=== PATIENT | female | born 1995 | race Caucasian/White ===

== ENCOUNTER 2016-09-30 05:53 | Emergency (ER) | payer OTHER ==
[2016-09-30 07:28] LABS: HEMOGLOBIN 14.4 gm/dl (12.3-15.3); RED BLOOD COUNT 5.57 M/UL (4.00-5.10); WHITE BLOOD COUNT 8.1 K/UL (4.5-11.0)
[2016-09-30 07:42] LABS: BUN/CREATININE RATIO 25 (0-10)
== END 2016-09-30 09:35 | disposition home or self-care (01) ==
LOC: ER1 05:53
PROVIDERS: Specialist/Technologist Athletic Trainer
DX: R11.2 Nausea with vomiting, unspecified (principal); R19.7 Diarrhea, unspecified; R10.816 Epigastric abdominal tenderness; M79.1 Myalgia; R68.83 Chills (without fever)
CPT/HCPCS: 36415; 80053; 81001; 82150; 83690; 84703; 85025; 96374; 96375; 99284; J2405; J2550; J7030; J7050

== ENCOUNTER 2022-03-09 12:00 | Emergency (ER) | payer OTHER ==
[~2022-03-09 12:00] MED LIST: FERROUS SULFAT325 MG PO
[2022-03-09 12:45] LABS: HEMOGLOBIN 13.2 gm/dl (12.3-15.3); RED BLOOD COUNT 4.88 M/UL (4.00-5.10)
[2022-03-09 13:15] LABS: BUN/CREATININE RATIO 12 (0-10)
[2022-03-09 13:19] LABS: WHITE BLOOD COUNT 1.2 K/UL (4.5-11.0)
[2022-03-09] MEDS ORDERED: LEVOFLOXACIN500 MG PO (13:33)
== END 2022-03-09 14:15 | disposition home or self-care (01) ==
LOC: ER1 12:00
PROVIDERS: Physician Assistant
DX: U07.1 COVID-19 (principal); D70.3 Neutropenia due to infection
CPT/HCPCS: 71045; 80053; 82550; 82553; 84484; 85025; 85379; 93005; 96374; 99285; J1885

== ENCOUNTER → 2022-03-12 | Outpatient (CLI) | payer OTHER ==
[~2022-03-12] MED LIST changes: +LEVOFLOXACIN500 MG PO
[2022-03-12 15:45] LABS: HEMOGLOBIN 13.5 gm/dl (12.3-15.3); RED BLOOD COUNT 4.93 M/UL (4.00-5.10); WHITE BLOOD COUNT 2.9 K/UL (4.5-11.0)
== END ==
LOC: LAB 15:16
PROVIDERS: Physician Assistant
DX: D70.9 Neutropenia, unspecified (principal); U07.1 COVID-19
CPT/HCPCS: 36415; 85027